=== PATIENT | female | born 1985 | race Caucasian/White ===

== ENCOUNTER 2020-01-25 08:21 | Day surgery (SDC) | payer MEDICAID ==
[~2020-01-25 08:21] MED LIST: ACETAMINOPHEN 1,000 MG/100 ML BTL IVPB ONE
[2020-01-25] MEDS ORDERED: FENTANYL PF 100MCG/2ML VIAL IV ONE (08:22)
[2020-01-25] MEDS ORDERED: ONDANSETRON HCL IV 4 MG/2 ML VIAL IVP ONE (08:22)
[2020-01-25] MEDS ORDERED: DESFLURANE 240 ML BTL INH ONE (08:22)
[2020-01-25] MEDS ORDERED: DEXAMETHASONE 4 MG/ML 1ML VIAL IVP ONE (08:22)
[2020-01-25] MEDS ORDERED: MIDAZOLAM HCL 2MG/2ML VIAL IV ONE (08:22)
[2020-01-25] MEDS ORDERED: PROPOFOL 10 MG/ML VIAL IV ONE (08:22)
[2020-01-25] MEDS ORDERED: LIDOCAINE 2% MDV (20MG/ML) 20ML VIAL IV ONE (08:22)
[2020-01-25] MEDS ORDERED: RINGERS SOLUTION,LACTATED 1,000 ML IV ONE (09:11)
[2020-01-25] MEDS ORDERED: BUPIVACAINE 0.25% W/EPI MPF 30ML VIAL SQ ONE ×2 (10:09)
--- NOTE | 2020-01-26 06:01 | Operative Note ---
DATE OF SURGERY: 01/25/2020 SURGEON: Jose Manuel Muller DO PREOPERATIVE DIAGNOSIS: Recurrent right breast galactocele. POSTOPERATIVE DIAGNOSIS: Recurrent right breast galactocele. OPERATION: Drainage of right breast galactocele with placement of drain. INDICATION: The patient is a 34-year-old female who had a galactocele formed about a month ago. She underwent an FNA through the breast care center at [facility]. This did re-form and became quite painful for her. I did speak with the treatment radiologist who felt that surgical drainage was probably in her best interest. We did discuss drainage. Risks, benefits, and alternatives were discussed. Risks include bleeding, infection, acute or chronic pain, recurrent. She understood this fully. Thereafter, consent was signed and questions answered. PROCEDURE: The patient was taken to the operating room and placed in a supine position. General anesthesia was administered per the department of anesthesia. The patient's right breast was prepped and draped in the usual fashion. The area in her upper inner quadrant was anesthetized with a total of 5 mL of 0.25% Sensorcaine with epinephrine. A 2 cm incision was made. This was carried down bluntly into a fluid cavity which was drained with the aid of suction. I did place a 15-[place] Leon[place] drain which was brought out through a separate stab incision. The coil under the drain was placed in the galactocele cavity. The skin was then closed with 3-0 nylon. The patient was taken to the recovery room in stable condition. I will see her back in about a week to 10 days for drain care. HERMINIO
== END 2020-01-25 11:15 | disposition home or self-care (01) ==
LOC: SUR 08:21
PROVIDERS: ATTEND Surgery
DX: O92.79 Other disorders of lactation (principal); J45.909 Unspecified asthma, uncomplicated; F17.210 Nicotine dependence, cigarettes, uncomplicated
CPT/HCPCS: 81025; J2405; J7120